=== PATIENT | male | born 1975 | race Caucasian/White ===

== ENCOUNTER 2019-02-23 11:22 | Emergency (ER) | payer OTHER, SELFPAY ==
[2019-02-23 11:24] VITALS: BP 165/99; PULSE 94; RESP 16; TEMP 36.4; O2SAT 98; BMI 30.5
--- NOTE | 2019-02-23 11:56 | ED.VISSUMM ---
- ER Visit Summary Date of Service: 02/23/19 Chief Complaint: Back pain History of Present Illness: The patient is a 43 M with lumbar back pain for the last 3 days. Patient says nothing provoked this. Worse with movement. Nothing seems to make it better. He had similar symptoms about 15 years ago after lifting but it got better on its own. No history of back surgery or procedures. No known diagnosis. Sometimes the pain radiates down his legs. Denies bowel or bladder changes. Denies weakness or numbness. Denies any fevers. Denies abdominal pain or GI symptoms. Denies symptoms. Physical Examination: Afebrile and vital signs unremarkable. Lumbar spine is diffusely tender to palpation. Overlying skin appears normal. No redness or warmth. Straight leg raise negative. Normal strength and sensation. Test Results: None indicated Emergency Department Course and Treatment: Patient has myofascial back pain. Will continue anti-inflammatories at home. Will add [place] and Flexeril as needed. Follow-up with primary care for recheck. Treatment Plan: Above Disposition: Discharge Impression: 1. Lumbar back pain This note was generated with [employer] software. It may contain incorrect words, spelling, and punctuation that were not noted in review of the chart prior to signing
--- NOTE | 2019-02-23 12:00 | DCINST.ED_ITS ---
ED Disposition - Plan for ED Patient: Instructions: ED Sprain Strain Lumbar Prescriptions: Hydrocodone Bitart/Apap 5-325 [[place] 5MG-325MG] 1 tab PO Q6H PRN PRN 2 Days #8 tab PRN Reason: Pain Cyclobenzaprine [Flexeril] 10 mg PO TID PRN #20 tab PRN Reason: Muscle Spasm Referrals: Yessy Elkins [NON-STAFF] -
== END 2019-02-23 12:17 | disposition home or self-care (01) ==
LOC: ED 12:11
PROVIDERS: Emergency Provider Emergency Medicine
DX: M54.5 Low back pain (principal); Z72.0 Tobacco use
CPT/HCPCS: 99282